=== PATIENT | male | born 1950 | race African-American/Black ===

== ENCOUNTER → 2018-10-20 | Outpatient (CLI) | payer MEDICARE, MEDICAID ==
[~2018-10-20] MED LIST: ALD2525; ASPI-785; CLON-364; FURO-151; INDA1.255; KLOR; LISI40TA4; TERA5CAP4; TOPXL5
== END | disposition home or self-care (01) ==
LOC: MRI 14:34
PROVIDERS: ATTEND Internal Medicine Nephrology
DX: M51.26 Other intervertebral disc displacement, lumbar region (principal); M48.061 Spinal stenosis, lumbar region without neurogenic claudication; M40.46 Postural lordosis, lumbar region; M25.78 Osteophyte, vertebrae; M12.88 Other specific arthropathies, not elsewhere classified, other specified site; M48.02 Spinal stenosis, cervical region; M51.24 Other intervertebral disc displacement, thoracic region; M47.814 Spondylosis without myelopathy or radiculopathy, thoracic region
CPT/HCPCS: 72141; 72146; 72148